=== PATIENT | male | born 1965 | race Caucasian/White ===

== ENCOUNTER 2023-12-29 10:16 | Emergency (ER) | payer BC, SELFPAY ==
[2023-12-29] VITALS (7 sets, daily range): BP systolic 149–218; BP diastolic 96–117; BMI 30.7
--- NOTE | 2023-12-29 10:54 | ED.GENMED ---
History of Present Illness
General
Chief Complaint: Blood Pressure Problem
Source: patient
Exam Limitations: none
Time Seen by Provider: 12/29/23 10:25
Travel History
Have you had any contact with someone who has COVID-19?: No
Do you have any symptoms of coronavirus? Fever > 100 degrees, chills, cough, shortness of breath, sore throat, loss of taste or smell, muscle aches, or headache?: No
History of Present Illness
History of Present Illness:
Patient scheduled for outpatient surgery to remove a lesion from his tongue. Blood pressure was elevated and sent for further evaluation. Patient's blood pressure was last checked last June and was elevated then. Has tried to do diet changes
since then. No physician evaluation. He is unsure of what his blood pressure was then but thinks it might have been 160/90 range. He denies chest pain shortness of breath headache visual issues urinary issues etc. Currently asymptomatic.
Past History
Past History
ED Past Medical History: HTN (Borderline)
ED Past Surgical History: None
Review of Systems
Review of Systems
Respiratory: Reports no symptoms
Cardiac: Reports no symptoms
Neurological: Reports no symptoms
Phy Exam
Physical Exam
Physical Exam:
GENERAL: Alert and oriented in no apparent distress
EYE: Orbits normal.
NECK: Supple, no thyroid palpable
ENT: Pharynx without erythema
CARDIAC: Regular rate and rhythm without any obvious murmurs.
LUNGS: Clear breath sounds,normal
ABDOMEN: Soft, without focal tenderness or distention
NEUROLOGICAL: Alert and oriented , grossly non-focal
SKIN: Warm and dry, no rash or lesion, no discoloration, skin intact.
MUSCULOSKELETAL: No edema,no deformity.Good color
PSYCH: Normal and appropriate interaction.
Course
Orders/Labs/Results
Orders:
Orders
12/29/23 10:50
EKG [Electrocardiogram (*1)] Urgent
Reason for Study: Hypertension, Benign
Cardiac Monitoring- Treatment ONCE
EKG- Treatment ONCE
IV Insert/Care/Rem.- Treatment PRN
12/29/23 11:02
Basic Metabolic Panel Urgent
Complete Blood Count/With Diff Urgent
TSH Reflex To Free T4 Urgent
Urinalysis Reflex To Culture Urgent
Date Specimen was Collected: 12/29/23
Time Specimen was Collected: 10:52
12/29/23 11:49
Amlodipine [Norvasc] 5 mg PO NOW STA
Abnormal Lab Results
12/29/23
11:02
Lymphocytes % 20.2 L %
(20.5-51.1)
Sodium 134 L mmol/L
(135-145)
Glucose 100 H mg/dl
(70-99)
12/29/23 11:02
12/29/23 11:02
Vital Signs
Initial and Last Documented VS:
Initial Vital Signs
Temp Pulse Resp BP Pulse Ox
98.3 F 91 16 218/117 98
12/29/23 10:18 12/29/23 10:18 12/29/23 10:18 12/29/23 10:18 12/29/23 10:18
Last Documented Vital Signs
Temp Pulse Resp BP Pulse Ox
98.3 F 80 16 149/104 95
12/29/23 10:18 12/29/23 13:30 12/29/23 13:30 12/29/23 13:00 12/29/23 13:30
MDM/Problems Addressed
Differential Diagnosis Includes:
Asymptomatic hypertension. Check EKG kidney function urine. Monitor. Likely will start antihypertensive meds
*EKG
Interpreted by ED Provider?: Yes
Interpretation: normal
Heart Rate: 84
Rate: normal
Rhythm: sinus
[place]: normal axis
Interval: normal interval
QRS Pattern: normal QRS
Ischemia: no ischemia
*B2B Appointment Setter Interpretation
Rate: normal
Interpretation: normal
Heart Rate: 80
Rhythm: sinus
*Critical Care Note
Total Time (30-74mins, 75-104mins- exclusive of procedures): Not Applicable
Update Note
Update Note:
1400.... Last BP 167/96. Asymptomatic. Workup unremarkable. Will start amlodipine to follow-up
ED Attending Note
-
Portions of this chart may have been created with voice recognition software.� Occasional wrong word or��sound alike� substitutions may have occurred due to the inherent limitations of voice recognition software.
Discharge Plan
Departure
Patient Disposition: Home (Routine Discharge)
Date of Disposition: 12/29/23
Time of Disposition: 13:57
Patient with high blood pressure during this ER visit?: Yes
Discharge Problem:
Hypertension
Instructions: BLOOD PRESSURE
Prescriptions:
New
amlodipine 5 mg tablet
5 mg PO DAILY Qty: 30 0RF
Referrals:
[facility] [Provider Group] - Next open appointment
NONE,* [Family Provider] -
Activity Restrictions/Additional Instructions:
You need to contact and get close follow-up with a primary physician as soon as possible. Listed is 1 option
Interventions
Interventions:
*Risk Screen - Suicide Last Done: 12/29/23 10:51
*General Assessment Last Done: 12/29/23 10:51
*Neglect/Abuse Screening Last Done: 12/29/23 10:51
*ED COVID-19 Vaccine History Last Done: 12/29/23 10:18
ED- Cardiac Assessment Last Done: 12/29/23 10:51
ED- Neurological Assessment Last Done: 12/29/23 10:51
ED- Pulmonary Assessment Last Done: 12/29/23 10:51
[2023-12-29 11:34] LABS: % Basophils 0.9 % (0-2); % Eosinophils 5.9 % (0-6); % Immature Granulocytes 0.4 % (0-0.5); % Lymphocytes 20.2 % (20.5-51.1); % Monocytes 7.3 % (1.7-9.3); % Neutrophils 65.3 % (42.2-75.2); Absolute Basophils 0.1 10^3/uL (0-0.2); Absolute Eosinophils 0.4 10^3/uL (0-0.7); Absolute Lymphocytes 1.4 10^3/uL (1.2-3.4); Absolute Monocytes 0.5 10^3/uL (0.1-0.6); Absolute Neutrophils 4.5 10^3/uL (1.4-6.5); Hematocrit 43.3 % (39.0-52.0); Hemoglobin 15.5 g/dL (13.0-18.0); Mean Corp Hgb Conc. 35.8 g/dL (33.0-37.0); Mean Corpuscular Volume 83.8 fL (80.0-94.0); Mean Platelet Volume 8.9 fL (7.4-10.4); Nucleated Red Blood Cells % 0 % (-); Platelet Count 211 10^3/uL (130-400); Red Blood Cell Count 5.17 10^6/uL (4.70-6.10); White Blood Cell Count 6.8 10^3/uL (4.8-10.8)
[2023-12-29 11:38] LABS: Urine Albumin Negative (Neg - Trace); Urine Bilirubin Negative (Negative); Urine Character Clear (Clear); Urine Color Yellow; Urine Glucose Negative (Negative); Urine Ketone Negative (Negative); Urine Leukocyte Negative (Negative); Urine Nitrite Negative (Negative); Urine Occult Blood Negative (Negative); Urine Specific Gravity 1.025 (<1.030); Urine Urobilinogen Negative (Neg - 1+)
[2023-12-29 11:47] LABS: Blood Urea Nitrogen 15 mg/dl (9-20); Calcium 8.8 mg/dl (8.4-10.2); Carbon Dioxide 24 mmol/L (22-30); Chloride 103 mmol/L (98-107); Estimated Creatinine Clearance 62 ml/min; Glucose 100 mg/dl (70-99); Potassium 4.5 mmol/L (3.5-5.1); Sodium 134 mmol/L (135-145); eGFR > 60.00
[2023-12-29] MEDS: NORVASC 5 MG PO (11:58)
[2023-12-29 12:18] LABS: TSH Reflex To Free T4 1.26 uIU/ml (0.47-4.68)
== END 2023-12-29 14:46 | disposition home or self-care (01) ==
LOC: EMR 10:16
PROVIDERS: EMERGENCY PHYSICIAN Emergency Medicine
DX: I10 Essential (primary) hypertension (principal)
CPT/HCPCS: 99284; 80048; 81003; 84443; 85025; 93005